=== PATIENT | male | born 1940 | race Caucasian/White ===

== ENCOUNTER 2025-09-05 15:48 | Emergency (ER) | payer MEDICARE, OTHER ==
[~2025-09-05] VITALS: Ht 175.3 cm; Wt 91.2 kg
[2025-09-05 15:58] VITALS: TEMP 97.8
[2025-09-05 16:54] LABS: PLATELET COUNT (AUTO) 219 K/uL (150-450); RED BLOOD CELL COUNT(AUTO) 4.38 MIL/uL (4.5-6.0); RED CELL DISTRIBUTION WIDTH 14.4 % (11.5-15.0); WHITE BLOOD COUNT (AUTO) 10.5 K/uL (4.3-11.0)
[2025-09-05 17:02] LABS: CALCIUM, SERUM 9.1 mg/dL (8.5-10.1); CREATININE 1.3 mg/dL (0.6-1.3); SODIUM SERUM 139 mmol/L (136-145); UREA NITROGEN, BLOOD 29 mg/dL (7-18)
[2025-09-05 18:00] VITALS: BP 108/57; O2SAT 96
[2025-09-05] MEDS ORDERED: ACET-2030 PO (18:53)
[2025-09-05] MEDS ORDERED: LIDO30AD10 TP (18:53)
== END 2025-09-05 20:27 ==
LOC: ER 15:50
DX: M62.81 Muscle weakness (generalized) (principal); E11.9 Type 2 diabetes mellitus without complications; E78.5 Hyperlipidemia, unspecified; F03.90 Unspecified dementia, unspecified severity, without behavioral disturbance, psychotic disturbance, mood disturbance, and anxiety; I11.0 Hypertensive heart disease with heart failure; N40.0 Benign prostatic hyperplasia without lower urinary tract symptoms; W19.XXXA Unspecified fall, initial encounter; Y93.89 Activity, other specified; Y92.89 Other specified places as the place of occurrence of the external cause; Y99.8 Other external cause status
CPT/HCPCS: 36415; 70450-TC; 72170-TC; 80048-TC; 82550-TC; 85025-TC